=== PATIENT | female | born 2000 | race Caucasian/White ===

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

== ENCOUNTER 2023-07-07 20:17 | Emergency (ER) | payer OTHER ==
[2023-07-07 20:29] VITALS: RESP 18; BMI 26.0
[2023-07-07 21:24] LABS: EPI CELLS >36 /uL (0-25.1); HYALINE CASTS 0 /uL (0-3.1); URINE APPEARANCE CLEAR; URINE BACTERIA 957 /uL (0-1359); URINE BILIRUBIN NEGATIVE (NEGATIVE); URINE COLOR YELLOW; URINE GLUCOSE (UA) NEGATIVE (NEGATIVE); URINE KETONE NEGATIVE (NEGATIVE); URINE LEUK ESTERASE NEGATIVE (NEGATIVE); URINE NITRITE NEGATIVE (NEGATIVE); URINE PROTEIN NEGATIVE (NEGATIVE); URINE RBC 18 /uL (0-23.9); URINE UROBILINOGEN 0.2 mg/dL (0.2-1.0); URINE WBC 12 /uL (0-25.8)
[2023-07-07 21:26] LABS: HCG,QUALITATIVE URINE Negative
[2023-07-07 23:20] LABS: BASO % 0.3 % (0-2.0); EOS % 0.5 % (0-4.5); HEMATOCRIT 41.1 % (32.4-45.2); HEMOGLOBIN 14.1 GM/dL (10.7-15.3); LYMPH % 8.5 % (8-40); MCH 30.5 pg (25.7-33.7); MCHC 34.3 g/dl (32.0-36.0); MEAN CELL VOLUME 88.9 fl (80-96); MEAN PLT VOLUME 8.2 fl (7.5-11.1); NEUT % 87.7 % (42.8-82.8); PLATELET COUNT 348 10^3/uL (134-434); RBC 4.62 M/mm3 (3.60-5.2); RDW 13.3 % (11.6-15.6); WHITE BLOOD COUNT 10.9 K/mm3 (4.0-10.0)
[2023-07-07] MEDS ORDERED: ACETAMINOPHEN INJECTION 100 ML IVPB ONE (23:29)
[2023-07-07] MEDS: ACETAMINOPHEN 1000 MG/100 ML BAG IVPB ONE (23:32)
[2023-07-07] MEDS ORDERED: ONDANSETRON 4 MG/2 ML VIAL ONE (23:34)
[2023-07-07] MEDS ORDERED: FAMOTIDINE 20 MG/50 ML IVPB 20 MG/50 ML MG IVPB ONE (23:35)
[2023-07-07] MEDS: FAMOTIDINE 20 MG/50 ML IVPB 20 MG/50 ML MG IVPB ONE (23:40)
[2023-07-07] MEDS: ONDANSETRON 4 MG/2 ML VIAL IVPUSH ONE (23:48)
[2023-07-07] MEDS: SODIUM CHLORIDE 0.9% 500 ML INFUS.BAG IV ONE (23:48)
[2023-07-07 23:54] LABS: POTASSIUM 4.2 mmol/L (3.5-5.1)
[2023-07-07 23:56] LABS: CALCIUM 9.1 mg/dL (8.5-10.1)
[2023-07-07 23:57] LABS: ALBUMIN 4.1 g/dl (3.4-5.0); BLOOD UREA NITROGEN 13.2 mg/dL (7-18)
[2023-07-08] LABS: CREATININE 0.6 mg/dL (0.55-1.3)
[2023-07-08 00:01] LABS: BILIRUBIN,TOTAL 0.5 mg/dL (0.2-1); TOT PROT 7.9 g/dl (6.4-8.2)
[2023-07-08] MEDS ORDERED: KETOROLAC TROMETHAMINE 30 MG/1 ML VIAL ONE (01:12)
[2023-07-08] MEDS ORDERED: MAG HYDROX/AL HYDROX/SIMETH 30 ML UNIT-DOSE CUP ONE (01:12)
[2023-07-08] MEDS ORDERED: LIDOCAINE VISCOUS 2% ORAL/TOP 15 ML UNIT-DOSE CUP ONE (01:14)
[2023-07-08] MEDS: MAG HYDROX/AL HYDROX/SIMETH 30 ML UNIT-DOSE CUP PO ONE (01:17)
[2023-07-08] MEDS: LIDOCAINE VISCOUS 2% ORAL/TOP 15 ML UNIT-DOSE CUP MM ONE (01:17)
[2023-07-08] MEDS: KETOROLAC TROMETHAMINE 30 MG/1 ML VIAL IVPUSH ONE (01:17)
[2023-07-08 01:36] VITALS: BP 114/71; PULSE 89; TEMP 97.4
== END 2023-07-08 02:04 | disposition home or self-care (01) ==
LOC: JER 20:17
PROC: 3E033GC Introduction of Other Therapeutic Substance into Peripheral Vein, Percutaneous Approach (ICD-10-PCS; principal; 2023-07-07)
PROC: 3E033GC Introduction of Other Therapeutic Substance into Peripheral Vein, Percutaneous Approach (ICD-10-PCS; 2023-07-07)
PROC: 3E033NZ Introduction of Analgesics, Hypnotics, Sedatives into Peripheral Vein, Percutaneous Approach (ICD-10-PCS; 2023-07-07)
PROC: 3E0333Z Introduction of Anti-inflammatory into Peripheral Vein, Percutaneous Approach (ICD-10-PCS; 2023-07-07)
DX: R10.13 Epigastric pain (principal); R11.2 Nausea with vomiting, unspecified; K52.9 Noninfective gastroenteritis and colitis, unspecified; Z20.822 Contact with and (suspected) exposure to COVID-19
CPT/HCPCS: 0241U-QW; 36415; 76705-TC; 80053; 81003; 83690; 84703; 85025; 96365; 96375; 99284-25; J0131

== ENCOUNTER 2024-05-12 08:17 | Emergency (ER) | payer OTHER ==
[2024-05-12 08:26] VITALS: BMI 26.2
[2024-05-12] MEDS ORDERED: TETRACAINE 0.5% OPHTH SOLN 2 ML BOTTLE ONE (08:55)
[2024-05-12] MEDS: TETRACAINE 0.5% HCL 0.6ML DROPPER.BOTTLE OD ONE (08:55)
[2024-05-12] MEDS ORDERED: FLUORESCEIN NA 1 EA STRIP ONE (08:55)
[2024-05-12] MEDS: FLUORESCEIN NA 1 EA STRIP OD ONE (08:55)
[2024-05-12] MEDS ORDERED: METOPROLOL TARTRATE 50 MG TABLET (FP) ONE (09:12)
[2024-05-12] MEDS ORDERED: APIXABAN 5 MG TABLET ONE (09:12)
[2024-05-12] MEDS ORDERED: ACETAMINOPHEN 325 MG TABLET (FP) ONE (09:20)
[2024-05-12] MEDS: ACETAMINOPHEN 325 MG TABLET (FP) PO ONE (09:35)
[2024-05-12 10:28] VITALS: BP 119/81; PULSE 90; RESP 14; TEMP 98.5
== END 2024-05-12 11:09 | disposition home or self-care (01) ==
LOC: JER 08:17
DX: H57.89 Other specified disorders of eye and adnexa (principal); R53.1 Weakness; M79.10 Myalgia, unspecified site; J34.89 Other specified disorders of nose and nasal sinuses; R00.0 Tachycardia, unspecified; Z20.822 Contact with and (suspected) exposure to COVID-19
CPT/HCPCS: 0241U-QW; 93005; 93010; 99284-25

== ENCOUNTER 2025-01-08 22:57 | Emergency (ER) | payer OTHER ==
[2025-01-08 23:18] VITALS: RESP 18; TEMP 98.6; BMI 28.0
[2025-01-09] MEDS ORDERED: IBUPROFEN 600 MG TABLET (FP) PO ONE
[2025-01-09] MEDS ORDERED: LIDOCAINE 4% PATCH TP ONE (00:01)
[2025-01-09] MEDS: IBUPROFEN 600 MG TABLET (FP) PO ONE (00:08)
[2025-01-09] MEDS: LIDOCAINE 5% TOPICAL PATCH TP ONE (00:08)
[2025-01-09] MEDS: LIDOCAINE PATCH REMOVAL MC SCH (00:09)
[2025-01-09 01:15] VITALS: BP 130/85; PULSE 88
[2025-01-09 01:19] LABS: HCG,QUALITATIVE URINE Negative
[2025-01-09 01:20] LABS: URINE APPEARANCE CLEAR; URINE BILIRUBIN NEGATIVE (NEGATIVE); URINE COLOR YELLOW; URINE GLUCOSE (UA) NEGATIVE (NEGATIVE); URINE KETONE NEGATIVE (NEGATIVE); URINE LEUK ESTERASE NEGATIVE (NEGATIVE); URINE NITRITE NEGATIVE (NEGATIVE); URINE PROTEIN NEGATIVE (NEGATIVE); URINE UROBILINOGEN 0.2 mg/dL (0.2-1.0)
== END 2025-01-09 01:31 | disposition home or self-care (01) ==
LOC: JER 22:57
DX: R07.89 Other chest pain (principal)
CPT/HCPCS: 71046-TC-FY; 81003; 84703; 87086; 99284-25